=== PATIENT | male | born 1985 | race African-American/Black ===

== ENCOUNTER 2021-12-18 13:42 | Emergency (ER) | payer OTHER, SELFPAY ==
[2021-12-18 13:47] VITALS: BP 131/89; PULSE 74; RESP 16; TEMP 36.7; O2SAT 96
--- NOTE | 2021-12-18 13:49 | DI.RAD.S_ITS ---
PROCEDURE: XR KNEE LT 3V INDICATIONS: pain without known injury TECHNIQUE: 3 views of the knee were acquired. COMPARISON: None. FINDINGS: Bones: No fractures or dislocations. No suspicious bony lesions. Soft tissues: Trace joint effusion. No suspicious soft tissue calcifications. IMPRESSION: No acute osseous abnormality. Dictated by: Korey Mclaughlin M.D. on 12/18/2021 at 15:21 Approved by: Korey Mclaughlin M.D. on 12/18/2021 at 15:22
--- NOTE | 2021-12-18 16:20 | ED_ITS ---
HPI - Extremity Injury (Lower) <James Holt PA-C - Last Filed: 12/18/21 16:25> General Chief Complaint: Extremity Injury, Lower Stated Complaint: LT knee pain Time Seen by Provider: 12/18/21 15:26 Source: patient Mode of arrival: Ambulatory History of Present Illness HPI Narrative: 36-year-old male with no reported past medical history presents to the ED with 2 days of left-sided knee pain. Patient denies any trauma. Patient states that his need for started hurting 2 months ago after a workout. The pain spontaneously resolved, and resumed spontaneously yesterday. Patient denies numbness, tingling, weakness, fever, chills. Patient had moderate relief with ibuprofen. Review of Systems <James Holt PA-C - Last Filed: 12/18/21 16:25> Review of Systems ROS Unobtainable: All systems reviewed & are unremarkable except as noted in HPI and below Constitutional Constitutional: Denies chills, Denies fatigue, Denies fever(s), Denies frequent falls, Denies lethargy and Denies weakness Eyes Eyes: Denies change in vision, Denies eye discharge, Denies irritation and Denies loss of vision ENT Ears, Nose, Mouth, and Throat: Denies change in voice, Denies dizziness, Denies neck pain, Denies sore throat and Denies throat swelling Cardiovascular Cardiovascular: Denies chest pain, Denies irregular heart rhythm, Denies lightheadedness, Denies palpitations, Denies dyspnea, Denies dyspnea on exertion and Denies orthopnea Respiratory Respiratory: Denies cough, Denies dyspnea, Denies dyspnea on exertion and Denies wheezing Gastrointestinal Gastrointestinal: Denies abdominal pain, Denies change in bowel habits, Denies diarrhea, Denies nausea and Denies vomiting Genitourinary Genitourinary: Denies hematuria, Denies flank pain, Denies urinary incontinence and Denies urinary urgency Musculoskeletal Musculoskeletal: Denies back pain, Denies muscle weakness, Denies neck pain, Denies numbness and Denies tingling Comments: Left knee pain Integumentary/Breasts Skin/Breast: Denies pruritus, Denies erythema, Denies rash and Denies wounds Neurologic Neurologic: Denies behavioral changes, Denies confusion, Denies dizziness, Denies frequent falls, Denies loss of vision, Denies numbness, Denies tingling and Denies weakness Psychiatric Psychiatric: Denies anxiety, Denies behavioral changes, Denies confusion, Denies depression, Denies homicidal ideation and Denies suicidal ideation Endocrine Endocrine: Denies fatigue, Denies flushing and Denies palpitations Hematologic/Lymphatic Hematologic/Lymphatic: Denies easy bruising Allergic/Immunologic Allergic/Immunologic: Denies urticaria, Denies throat swelling and Denies wheezing Patient History <James Holt PA-C - Last Filed: 12/18/21 16:25> Social History Smoking Status: Never smoker Smoking Status: Never smoker alcohol intake frequency: a few times a month Exam <James Holt PA-C - Last Filed: 12/18/21 16:25> Initial Vital Signs Initial Vital Signs: Vital Signs Temperature 98.0 F 12/18/21 13:47 Pulse Rate 74 12/18/21 13:47 Respiratory Rate 16 12/18/21 13:47 Blood Pressure 131/89 12/18/21 13:47 Pulse Oximetry 96 12/18/21 13:47 Const General: cooperative, healthy appearing and comfortable HENMT Head: normal to inspection Resp Effort & Inspection: normal respiratory effort Cardio Rate: regular rate Skin General: no rashes or lesions noted Neuro General: patient alert, patient awake and patient oriented x3 Extrem Other: No swelling, erythema, lesions noted to left knee. Knee not tender to palpation. Neurovascularly intact. Full range of motion. Gait normal. Psych Appearance: grossly normal <Jess Reyna DO - Last Filed: 12/18/21 19:46> Initial Vital Signs Initial Vital Signs: Vital Signs Temperature 98.0 F 12/18/21 13:47 Pulse Rate 74 12/18/21 13:47 Respiratory Rate 16 12/18/21 13:47 Blood Pressure 131/89 12/18/21 13:47 Pulse Oximetry 96 12/18/21 13:47 Course <James Holt PA-C - Last Filed: 12/18/21 16:25> Orders Ordered: ED Orders 12/18/21 13:49 XR knee LT 3V Stat Vital Signs Vital signs: Vital Signs - 8 hr 12/18/21 13:47 Temperature 98.0 F Pulse Rate 74 Respiratory Rate 16 Blood Pressure 131/89 Pulse Oximetry 96 <Jess Reyna DO - Last Filed: 12/18/21 19:46> Orders Ordered: ED Orders 12/18/21 13:49 XR knee LT 3V Stat Vital Signs Vital signs: Vital Signs - 8 hr 12/18/21 13:47 Temperature 98.0 F Pulse Rate 74 Respiratory Rate 16 Blood Pressure 131/89 Pulse Oximetry 96 MDM - Extremity Injury (Lower) <James Holt PA-C - Last Filed: 12/18/21 16:25> Imaging Data Extremity x-ray #1: Radiologist's Impression: PROCEDURE:? XR KNEE LT 3V ? INDICATIONS:? pain without known injury ? TECHNIQUE:? 3 views of the knee were acquired.? ? COMPARISON:? None. ? FINDINGS:? ? Bones:? No fractures or dislocations.? No suspicious bony lesions.? ? Soft tissues:? Trace joint effusion.? No suspicious soft tissue calcifications.? ? ? IMPRESSION:? No acute osseous abnormality. ? ? Dictated by: Korey Mclaughlin M.D. on 12/18/2021 at 15:21 ? ? Approved by: Korey Mclaughlin M.D. on 12/18/2021 at 15:22 ? [facility] Narrative Medical decision making narrative: 36-year-old male with no reported past medical history presents to the ED with 2 days of left-sided knee pain. Will order x-rays to rule out fracture/dislocations. X-ray negative for fracture/dislocations. Patient's symptoms likely due to musculoskeletal sprain/strain. Will discharge home with recommendation to rise, ice, compress, elevate. ED return precautions discussed. Patient verbalized understanding. Discharge Plan Departure Patient Disposition: Home Clinical Impression: Acute knee pain Instructions: DI for Knee Pain Activity Restrictions/Additional Instructions: You were evaluated in the ED today for left-sided knee pain. Your x-ray did not show any evidence of fractures or dislocations. Your symptoms are likely due to a knee sprain/strain. You may rest, ice, compress, elevate your foot. Return to the ED if you have symptoms of numbness, tingling, weakness, worsened pain. You may use Tylenol or ibuprofen for symptom control. <Jess Reyna DO - Last Filed: 12/18/21 19:46> Cosign ED Attending Cosignature Attestation: I was immediately available in the department for consultation. Documentation has been reviewed.
== END 2021-12-18 16:03 | disposition home or self-care (01) ==
PROVIDERS: Emergency Provider Student in an Organized Health Care Education/Training Program
DX: M25.562 Pain in left knee (principal)
CPT/HCPCS: 73562; 99281; 99283

== ENCOUNTER 2023-08-28 10:47 | Emergency (ER) | payer SELFPAY ==
[2023-08-28 10:50] VITALS: BP 132/78; PULSE 79; RESP 15; TEMP 36.6; O2SAT 97; BMI 31.4
--- NOTE | 2023-08-28 11:08 | ED.EAR ---
HPI - Ear Problem General Chief complaint: Ear Stated complaint: headache/ear infection Time Seen by Provider: 08/28/23 10:49 Source: patient Mode of arrival: Ambulatory History of Present Illness HPI Narrative: 38-year-old male with no significant past medical history presents for evaluation of left ear pain since yesterday. Patient uses Q-tips daily and is concerned that he may have injured his ear and some fashion. Denies hearing changes, water exposure, other trauma to the ear. Related Data Previous Rx's Medication Instructions Recorded ciprofloxacin 0.2 %-hydrocortisone 3 drp EAR-LEFT Q12H 7 days #10 mL 08/28/23 1 % ear drops,suspension (Cipro HC) ciprofloxacin 0.2 %-hydrocortisone 3 drp EAR-LEFT Q12H 7 days #10 mL 08/28/23 1 % ear drops,suspension (Cipro HC) Allergies Allergy/AdvReac Type Severity Reaction Status Date / Time No Known Drug Allergies Allergy Verified 08/28/23 10:53 Review of Systems Review of Systems Narrative: CONSTITUTIONAL- Denies: fever, chills, fatigue HEENT-reports: Ear pain Denies: sore throat, nosebleed, vision changes RESPIRATORY- Denies: shortness of breath, cough, wheezing CARDIAC- Denies: chest pain, edema, orthopnea GI- Denies: abdominal pain, nausea, vomiting, constipation, diarrhea - Denies: frequency, dysuria, hematuria, flank pain MSK- Denies: extremity pain, extremity swelling, joint pain, joint swelling SKIN- Denies: rash, itching, burn, swelling NEUROLOGICAL- Denies: headache, numbness, weakness, dizziness PSYCHIATRIC- Denies: anxiety, depression, suicidal ideation, homicidal ideation Patient History Social History Smoking Status: Unknown if ever smoked Smoking Status: Unknown if ever smoked alcohol intake frequency: 0-2 drinks per day Substance Use Type: does not use Exam Initial Vital Signs Initial Vital Signs: Vital Signs Temperature 97.8 F 08/28/23 10:50 Pulse Rate 79 08/28/23 10:50 Respiratory Rate 15 08/28/23 10:50 Blood Pressure 132/78 08/28/23 10:50 Pulse Oximetry 97 08/28/23 10:50 Oxygen Delivery Method Room Air 08/28/23 10:50 Const: Awake, alert, no acute distress, nontoxic appearing Eyes: PERRL, EOMI, conjunctiva normal ENT: Right tympanic membrane intact. Left tympanic membrane with abrasion, no perforation. Mild erythema of left tympanic membrane. Negative for auricular tenderness bilaterally, no external auditory canal swelling Cardiac: regular rate, regular rhythm RESP: unlabored, clear bilaterally, no wheezing GI: Atraumatic, soft, nontender, nondistended, no rebound, no guarding MSK: Atraumatic, full range of motion, pulses equal Skin: Warm, Dry, intact, no rashes Neuro: AO x3, CN II-XII grossly intact, moves all extremities Psych: affect normal, mood normal, not suicidal, not homicidal Course Course Course Narrative: Accidental injury to TM without perforation. Patient counseled against further use of Q-tips. We will discharge on antibiotic drops with hydrocortisone. Patient counseled to follow up with his primary care physician. Vital Signs Vital signs: Vital Signs - 8 hr 08/28/23 10:50 Temperature 97.8 F Pulse Rate 79 Respiratory Rate 15 Blood Pressure 132/78 Pulse Oximetry 97 Oxygen Delivery Method Room Air Medical Decision Making Differential Diagnosis Differential Diagnosis: Otitis externa, otitis media, tympanic membrane perforation Discharge Plan Departure Patient Disposition: Home Clinical Impression: Tympanic membrane irritation Instructions: How to Instill Ear Drops Prescriptions: New Cipro HC 0.2-1 % drops,suspension 3 drp EAR-LEFT Q12H 7 Days Qty: 10 0RF Cipro HC 0.2-1 % drops,suspension 3 drp EAR-LEFT Q12H 7 Days Qty: 10 0RF Referrals: Miscellaneous,Doctor, MD [Primary Care Provider] - Stand Alone Forms: Patient Portal/API
== END 2023-08-28 11:14 | disposition home or self-care (01) ==
PROVIDERS: Emergency Provider Emergency Medicine
DX: H73.92 Unspecified disorder of tympanic membrane, left ear (principal)
CPT/HCPCS: 99281

== ENCOUNTER 2023-09-18 00:17 | Emergency (ER) | payer SELFPAY ==
[2023-09-18 00:23] VITALS: BP 128/84; PULSE 77; RESP 18; TEMP 37.1; O2SAT 95; BMI 31.5
--- NOTE | 2023-09-18 00:25 | DI.RAD.S_ITS ---
PROCEDURE: XR FINGER LT MIN 2V INDICATIONS: pain, decreased ROM at DIP TECHNIQUE: AP hand, 2 views of the 4th digit (s) acquired. COMPARISON: None. FINDINGS: Bones: Acute mildly displaced fracture of the base of the 4th digit distal phalanx. Fracture involves the articular surface. Mild dorsal displacement of the fracture fragment. Soft tissues: No suspicious soft tissue calcifications. IMPRESSION: Acute mildly displaced fracture of the base of the 4th digit distal phalanx. Dictated by: Jemal Lundy M.D. on 09/18/2023 at 0:38 Approved by: Jemal Lundy M.D. on 09/18/2023 at 0:42
--- NOTE | 2023-09-18 00:28 | ED.GENADULT ---
HPI - General Adult General Chief complaint: Extremity Injury, Upper Stated complaint: Left ring finger injury Time Seen by Provider: 09/18/23 00:25 History of Present Illness HPI narrative: 38-year-old male noncontributory medical history presents for evaluation of pain in his left 4th finger. He states that he fell on it awkwardly 5 or 6 weeks ago and has had ongoing pain the tip of his finger. Denies numbness or tingling. He is otherwise well and free of complaint Related Data Previous Rx's Medication Instructions Recorded ofloxacin 0.3 % ear drops 10 drp EAR-LEFT Q24H #5 mL 08/29/23 Allergies Allergy/AdvReac Type Severity Reaction Status Date / Time No Known Drug Allergies Allergy Verified 08/28/23 10:53 Review of Systems Review of Systems Narrative: GENERAL: Denies chills, fatigue, malaise, fever, sweats. HEENT: Denies sinus pain, ear pain, sore throat, difficulty swallowing, dizziness. RESPIRATORY: Denies dyspnea, cough, wheezing, hemoptysis, sputum. CARDIOVASCULAR: Denies chest pain, palpitations, orthopnea, edema, GASTROINTESTINAL: Denies nausea, vomiting, abdominal pain, diarrhea, constipation, melena. : Denies dysuria, frequency, incontinence, hematuria, urinary retention. MUSCULOSKELETAL: See HPI SKIN: Denies rash, skin lesions, or other NEUROLOGIC: Denies weakness, headache, numbness, change in speech, confusion, seizures, incoordination. PSYCHIATRIC: No concerning psychosocial issues. 12 point review of systems is negative except for those stated above Patient History Social History Smoking Status: Unknown if ever smoked Smoking Status: Unknown if ever smoked alcohol intake frequency: 0-2 drinks per day Substance Use Type: does not use Exam Narrative Exam Narrative: GEN: AOx3 and in mild distress EYES: Pupils are equal, round, and reactive to light and accommodation. Extraoccular muscles are intact bilaterally. There is no subconjunctival hemorrhage or exudate. CHEST: Lungs are clear to auscultation bilaterally and free of wheezes, rales, or rhonchi. Heart rate is regular rhythm, there are no murmurs, clicks, rubs, or gallops. There is no chest wall tenderness. ABD: Abdomen is soft and nontender. There is no guarding or rebound. Bowel sounds are normal in all 4 quadrants. There is no mass or organomegaly. EXT: Full but painful range of motion of left 4th finger with some tenderness at the PIP, no obvious deformity, closed, isolated and neurovascularly intact SKIN: Warm, pink, and dry. No erythema or rash Initial Vital Signs Initial Vital Signs: Vital Signs Temperature 98.8 F 09/18/23 00:23 Pulse Rate 77 09/18/23 00:23 Respiratory Rate 18 09/18/23 00:23 Blood Pressure 128/84 09/18/23 00:23 Pulse Oximetry 95 09/18/23 00:23 Oxygen Delivery Method Room Air 09/18/23 00:23 Procedures Orthopedic Splinting/Casting Injury #1: Side: left Upper Extremity Injury Location: finger Upper Extremity Immobilizer: aluminum form splint Post splinting neuro exam: intact Post splinting vascular exam: intact Placed by: Nursing Course Orders Ordered: ED Orders 09/18/23 00:25 XR finger LT min 2V Stat Vital Signs Vital signs: Vital Signs - 8 hr 09/18/23 00:23 Temperature 98.8 F Pulse Rate 77 Respiratory Rate 18 Blood Pressure 128/84 Pulse Oximetry 95 Oxygen Delivery Method Room Air Medical Decision Making [facility] Narrative Medical decision making narrative: [38] year old patient presents with left ring finger injury 5 or 6 weeks ago Multiple etiologies for patient's symptoms considered including, but not limited to: [] Fracture versus dislocation versus other Prior Charts reviewed in our EMR Primary Historian: patient Imaging reviewed: 4th finger fracture Patient's history and physical exam is reassuring, the injury is well over month old, closed, isolated and neurovascularly intact. He is splinted and encouraged to follow up with ortho Findings and discharge diagnosis discussed with patient/family followed by verbalization of understanding Return precautions discussed with patient/family whom verbalize understanding of diagnosis and plan Discharge Plan Departure Patient Disposition: Home Clinical Impression: Finger fracture, left Instructions: DI for Finger Fracture Activity Restrictions/Additional Instructions: *You have been diagnosed with [left 4th finger fracture the distal phalanx] *What to do: *Please continue to take your regular medications as directed. [ ] New medication prescriptions sent to your pharmacy: [ ] [ ] New medication written as a paper prescription [x] Tylenol and occasional Motrin for pain *Please follow up with [ Gladys] of [facility] in 2-3 days, call for an appointment. Let them know you were seen in the Emergency Department and that we ask that you be seen in follow up. We will electronically transmit a record of today's note if your PCP is in our system *Return to Emergency Department if you should have any new, worsening or concerning symptoms, such as [worsening pain, significant swelling, cold extremities, numbness, tingling, weakness or other bothersome symptoms Prescriptions: No Action ofloxacin 0.3 % drops 10 drp EAR-LEFT Q24H Qty: 5 0RF Referrals: Miscellaneous,MD Donte [Primary Care Provider] - Mynor Graham MD [Physician] - Stand Alone Forms: Patient Portal/API
== END 2023-09-18 00:56 | disposition home or self-care (01) ==
PROVIDERS: Emergency Provider Emergency Medicine
DX: S62.635A Displaced fracture of distal phalanx of left ring finger, initial encounter for closed fracture (principal); W19.XXXA Unspecified fall, initial encounter
CPT/HCPCS: 29130; 73140; 99283

== ENCOUNTER 2024-02-12 17:34 | Emergency (ER) | payer SELFPAY ==
[2024-02-12 17:45] VITALS: BP 173/97; PULSE 99; RESP 22; TEMP 36.6; O2SAT 97; BMI 29.2
[2024-02-12 18:08] VITALS: PULSE 107; RESP 16; O2SAT 99
[2024-02-12] MEDS: ALBUTEROL/IPRATROPIUM 3 ML AMPUL 9 ML INH ×2 (18:08→19:53)
--- NOTE | 2024-02-12 18:20 | ED_ITS ---
HPI - Asthma General Chief Complaint: Asthma Stated Complaint: respiratory issues Time Seen by Provider: 02/12/24 17:48 Source: patient Mode of arrival: Ambulatory History of Present Illness HPI Narrative: 39-year-old male with history of asthma presents for asthma exacerbation. Patient states that he has been using his albuterol inhaler at home but it does not seem to be helping and is feeling chest tightness similar to previous flare- ups. Patient states that he has been admitted for asthma in the past, but not since he was a child. Denies recent illnesses or upper respiratory complaints. Related Data Previous Rx's Medication Instructions Recorded albuterol sulfate 2 mg/5 mL oral 4 mg (10 mL) PO TID PRN shortness 02/12/24 syrup of breath or wheezing #473 mL albuterol sulfate 90 mcg/actuation 2 puff inhalation Q4-6H PRN 02/12/24 aerosol inhaler shortness of breath or wheezing #8.5 grams prednisone 20 mg tablet 40 mg (2 x 20 mg) PO DAILY #10 tabs 02/12/24 Allergies Allergy/AdvReac Type Severity Reaction Status Date / Time No Known Drug Allergies Allergy Verified 02/12/24 17:47 Review of Systems Review of Systems Narrative: Negative except as noted above Patient History Social History Smoking Status: Unknown if ever smoked Smoking Status: Unknown if ever smoked alcohol intake frequency: 0-2 drinks per day Substance Use Type: does not use Exam Initial Vital Signs Initial Vital Signs: Vital Signs Temperature 98 F 02/12/24 17:45 Pulse Rate 99 H 02/12/24 17:45 Respiratory Rate 22 02/12/24 17:45 Blood Pressure 173/97 H 02/12/24 17:45 Pulse Oximetry 97 02/12/24 17:45 Oxygen Delivery Method Room Air 02/12/24 17:45 Const: Awake, alert, no acute distress, nontoxic appearing Cardiac: regular rate, regular rhythm RESP: Restricted air movement, mild tachypnea, expiratory wheezes upper lung garber GI: Soft, nontender, nondistended, no rebound, no guarding MSK: Atraumatic, full range of motion, pulses equal Skin: Warm, Dry, intact, no rashes Neuro: AO x3, CN II-XII grossly intact, moves all extremities Course Orders Ordered: ED Orders 02/12/24 18:20 Chest [XR chest 1V] Stat 02/12/24 18:27 Respiratory Panel (Film Array) Stat Discontinued Medications Albuterol/Ipratropium (Albuterol/Ipratropium 3 Ml Ampul) 9 ml INH NOW ONE Stop: 02/12/24 18:07 Last Admin: 02/12/24 18:08 Dose: 9 ml Documented By: GARO Albuterol/Ipratropium (Albuterol/Ipratropium 3 Ml Ampul) 9 ml INH NOW ONE Stop: 02/12/24 19:38 Last Admin: 02/12/24 19:53 Dose: 9 ml Documented By: GARO Dexamethasone (Dexamethasone 10 Mg/Ml Vial) 10 mg PO NOW ONE Stop: 02/12/24 18:21 Last Admin: 02/12/24 18:29 Dose: 10 mg Documented By: JAH Vital Signs Vital signs: Vital Signs - 8 hr 02/12/24 17:45 02/12/24 18:08 02/12/24 19:53 Temperature 98 F Pulse Rate 99 H 107 H 106 H Respiratory Rate 22 16 18 Blood Pressure 173/97 H Pulse Oximetry 97 99 98 Oxygen Delivery Method Room Air Room Air Room Air 02/12/24 20:45 02/12/24 20:52 Temperature 99.6 F 100.1 F H Pulse Rate 120 H Respiratory Rate 22 18 Blood Pressure 184/93 H 168/81 H Pulse Oximetry 98 93 Oxygen Delivery Method Room Air Room Air MDM - Asthma Differential Diagnosis Differential diagnosis: Likely Acute exacerbation, Status asthmaticus and Acute asthmatic bronchitis Lab Data Labs: Lab Results 02/12/24 Range/Units 18:27 Chlamy pneumoniae PCR Not detected (Not Detect) Adenovirus (PCR) Not detected (Not Detect) B.parapertussis DNA PCR Not detected (Not Detecte) Coronavirus OC43 (PCR) Not detected (Not Detect) Coronavirus HKU1 (PCR) Not detected (Not Detect) Coronavirus 229E (PCR) Not detected (Not Detect) SARS-CoV-2 (PCR) Not detected (Not Detecte) Coronavirus NL63 (PCR) Not detected (Not Detect) Human Metapneumovir PCR Not detected (Not Detect) Influenza Type A (PCR) Not detected (Not Detect) Influenza Type B (PCR) Not detected (Not Detect) M. pneumoniae (PCR) Not detected (Not Detect) Parainfluenza 1 (PCR) Not detected (Not Detect) Parainfluenza 2 (PCR) Not detected (Not Detect) Parainfluenza 3 (PCR) Not detected (Not Detect) Parainfluenza 4 (PCR) Not detected (Not Detect) RSV (PCR) Not detected (Not Detect) Entero/Rhino (PCR) Detected H (Not Detect) Imaging Data Chest x-ray: Radiologist's Impression: PROCEDURE: XR CHEST 1V INDICATIONS: asthma exacerbation/chest tightness TECHNIQUE: One view of the chest was acquired. COMPARISON: None. FINDINGS: Surgical changes and devices: None. Lungs and pleura: Lungs are clear. No pleural effusions or pneumothorax. Peribronchial cuffing. Mediastinum: Mediastinal contours appear normal. Heart size is normal. Bones and chest wall: No suspicious bony lesions. Overlying soft tissues appear unremarkable. IMPRESSION: Peribronchial cuffing, typically indicating infectious or inflammatory bronchitis. Dictated by: Ethan García M.D. on 02/12/2024 at 18:57 Approved by: Ethan García M.D. on 02/12/2024 at 18:58 [facility] Narrative Medical decision making narrative: Asthma exacerbation in patient with chronic recurrent asthma. Patient saturating well on room air, speaking in complete sentences without difficulty, but does have slight restricted air movement and expiratory wheezes on pulmonary exam. Steroids nebulizers ordered. Chest x-ray shows findings consistent with bronchitis. Patient does have im proved air movement but states he only feels slightly better after receiving DuoNebs. Will observe for a time and then we will give additional nebulizers. Respiratory panel positive for rhino virus. Second round of DuoNebs administered, patient states he feels ?60% better?. He states that at this time he feels improved enough to go home and does not want to stay any longer. He is requesting a refill of his albuterol inhaler as well as a prescription for albuterol nebulizers for his machine at home. In addition plan to discharge with steroid prescription. Prescription sent to patient's p harmacy of choice. ED return precautions discussed at bedside. Critical Care Time Critical Care Time Critical Care Time: Yes Total Critical Care Time: 33 Attestation: Acute asthma exacerbation requiring multiple nebulizers. Discharge Plan Departure Patient Disposition: Home Clinical Impression: Asthma with acute exacerbation Qualifiers: Asthma severity: moderate Instructions: DI for Asthma -- Adult Activity Restrictions/Additional Instructions: Follow up with your primary care physician. Please return to the emergency department if you feel like your breathing is worsening even though you are using your medications. Prescriptions: New albuterol sulfate 2 mg/5 mL syrup 4 mg PO TID PRN (Reason: shortness of breath or wheezing) Qty: 473 0RF albuterol sulfate 90 mcg/actuation HFA aerosol inhaler 2 puff inhalation Q4-6H PRN (Reason: shortness of breath or wheezing) Qty: 8.5 0RF prednisone 20 mg tablet 40 mg PO DAILY Qty: 10 0RF Referrals: Miscellaneous,Doctor, MD [Primary Care Provider] - Stand Alone Forms: Patient Portal/API, Work Release Note
[2024-02-12] MEDS: DEXAMETHASONE 10 MG/ML VIAL PO (18:29)
[2024-02-12 19:33] LABS: Adenovirus Not Detected (Not Detect); B. parapertussis Not Detected (Not Detecte); Bordetella pertussis Not Detected (Not Detect); Chlamydophila pneumoniae Not Detected (Not Detect); Coronavirus 229E Not Detected (Not Detect); Coronavirus HKU1 Not Detected (Not Detect); Coronavirus NL 63 Not Detected (Not Detect); Coronavirus OC43 Not Detected (Not Detect); Human Metapneumovirus Not Detected (Not Detect); Human Rhinovirus/Enterovirus Detected (Not Detect); Influenza A Not Detected (Not Detect); Influenza B Not Detected (Not Detect); Mycoplasma pneumoniae Not Detected (Not Detect); Parainfluenza Virus 1 Not Detected (Not Detect); Parainfluenza Virus 2 Not Detected (Not Detect); Parainfluenza Virus 3 Not Detected (Not Detect); Parainfluenza Virus 4 Not Detected (Not Detect); Respiratory Syncytial Virus Not Detected (Not Detect); SARS- CoV-2 Not Detected (Not Detecte)
[2024-02-12 19:53] VITALS: PULSE 106; RESP 18; O2SAT 98
[2024-02-12 20:45] VITALS: BP 184/93; RESP 22; TEMP 37.6; O2SAT 98
[2024-02-12 20:52] VITALS: BP 168/81; PULSE 120; RESP 18; TEMP 37.8; O2SAT 93
== END 2024-02-12 20:55 | disposition home or self-care (01) ==
PROVIDERS: Emergency Provider Emergency Medicine
DX: J45.901 Unspecified asthma with (acute) exacerbation (principal); B34.8 Other viral infections of unspecified site; Z20.822 Contact with and (suspected) exposure to COVID-19
CPT/HCPCS: 71045; 87633; 94150; 94640; 99283; 99285; J1100

== ENCOUNTER 2025-08-21 05:30 | Emergency (ER) | payer OTHER, SELFPAY ==
[2025-08-21 05:40] VITALS: BP 164/89; PULSE 74; RESP 16; TEMP 36.1; O2SAT 99; BMI 29.9
--- NOTE | 2025-08-21 06:03 | ED_ITS ---
HPI - Wound/Laceration General Chief Complaint: Wound/Laceration Stated Complaint: Rt hand ring finger laceration Time Seen by Provider: 08/21/25 06:02 Source: patient Mode of arrival: Ambulatory History of Present Illness HPI narrative: 40-year-old male punched through a window trying to get back into his home, sustained laceration to the right 4th finger dorsal aspect, can move his finger well. Last tetanus more than 5 years ago. No other injuries. Had local bleeding stopped with direct pressure. Does not take blood thinner medications. Related Data Previous Rx's ?Medication ?Instructions ?Recorded albuterol sulfate 2 mg/5 mL oral 4 mg (10 mL) PO TID P RN shortness 02/12/24 syrup of breath or wheezing #473 m L albuterol sulfate 90 mcg/actuation 2 puff inhalation Q 4-6H PRN 02/12/24 aerosol inhaler shortness of breath or wheez ing #8.5 grams prednisone 20 mg tablet 40 mg (2 x 20 mg) PO DAILY # 10 tabs 02/12/24 Allergies Allergy/AdvReac Type Severity Reaction Status Date / Time No Known Drug Allergies Allergy Verified 08/21/25 05:40 Patient History Social History Smoking Status: Never smoker Smoking Status: Never smoker alcohol intake frequency: 0-2 drinks per day Exam Narrative Exam Narrative: GENERAL: Well-developed patient, in mild distress. HEAD: Atraumatic. Normocephalic. EYES: Pupils equal round and reactive. No injection or drainage. ENT: Nose without bleeding. No facial injuries obvious. Airway patent. NECK: Trachea midline. Non tender CARDIOVASCULAR: Regular rate and rhythm without murmurs, gallops, or rubs. RESPIRATORY: Clear to auscultation. Breath sounds equal bilaterally. No wheezes, rales, or rhonchi. GASTROINTESTINAL: Abdomen soft, non-tender, nondistended. EXTREMITIES: Laceration over the distal phalanx right 4th finger dorsal aspect. Some nonpulsatile oozing blood from the ulnar aspect of the wound. Dorsal midline portion of the wound did not spread very deep or wide, did not visualize any tendinous structure. Full extension of finger including MCP PIP DIP, no di fficulties with full extension finger against some resistance. BACK: Nontender without deformity or crepitance. No flank tenderness. NEURO: AOx3. Motor functions grossly nonfocal. SKIN: No rash or erythema of visible areas Initial Vital Signs Initial Vital Signs: Vital Signs Temperature 97.0 F L 08/21/25 05:40 Pulse Rate 74 08/21/25 05:40 Respiratory Rate 16 08/21/25 05:40 Blood Pressure 164/89 H 08/21/25 05:40 Pulse Oximetry 99 08/21/25 05:40 Oxygen Delivery Method Room Air 08/21/25 05:40 Procedures Laceration Repair Laceration 1: Time of procedure: 07:33 Site: hand (right fourth finger dorsal horizontal hoxkeys tik shaped laceration, no visible tendon midline, full extension including against resistance) Side (If applicable): right Size (cm): 1.75 Description: linear Depth: simple, single layer Local Anesthetic: lidocaine 1% Amount of anesthesia used (mL): 3 Skin layer closed with: nylon Technique: simple, interrupted Subcutaneous layer closed with: vicryl Subcutaneous layer suture size: 4-0 Number of sutures: 6 Technique: simple, interrupted Course Orders Ordered: Discontinued Medications Bacitracin (Bacitracin Oint 0.9 Gm Pckt) 1 applic TOP NOW ONE Stop: 08/21/25 08:12 Last Admin: 08/21/25 08:18 Dose: 1 applic Documented By: RLS Diphtheria/Tetanus/Acell Pertussis (Tet,Diph,Pertuss(Acell),Vac/Pf 0.5 Ml Syringe) 0.5 ml IM .ONCE ONE Stop: 08/21/25 07:33 Last Admin: 08/21/25 08:09 Dose: 0.5 ml Documented By: BS Lidocaine HCl (Lidocaine 1% 20 Ml) 5 ml SUBCUT NOW ONE Stop: 08/21/25 06:47 Last Admin: 08/21/25 07:00 Dose: 5 ml Documented By: AB Vital Signs Vital signs: Vital Signs - 8 hr 08/21/25 05:40 Temperature 97.0 F L Pulse Rate 74 Respiratory Rate 16 Blood Pressure 164/89 H Pulse Oximetry 99 Oxygen Delivery Method Room Air MDM - Wound/Laceration Imaging Data Extremity x-ray #1: Radiologist's Impression: [address] [address] XRay Report Signed Patient: Tenzin Haas MR#: [id number] : 1985 Acct:[id number] Age/Sex: 40 / M Date of Service: 08/21/25 Loc: ED Accession Number: [id number] Procedure: XR finger RT min 2V Ordering Provider: Pierre Raman MD PROCEDURE: XR FINGER RT MIN 2V INDICATIONS: lac from glass TECHNIQUE: AP hand, 2 views of the 4th finger(s) acquired. COMPARISON: None. FINDINGS: Bones: No fractures or dislocations. No suspicious bony lesions. Soft tissues: No suspicious soft tissue calcifications. IMPRESSION: No acute bony abnormality. Note: This final report is concordant with the preliminary after-hours interpretation provided by [facility] Approved by: Mynor Srinivasan M.D. on 08/21/2025 at 10:02 MDM Narrative Medical decision making narrative: Right 4th finger dorsal laceration punching through glass trying to get it back into his home. X-ray without obvious fracture or foreign body shard material. No obvious tendinous injury midline dorsal aspect, could not visualize dorsal extensor tendon structures, he was able to fully extend including against resistance at DIP. X-ray without obvious fracture, no foreign body, see tele radiology report. Primary dorsal finger laceration closure suturing, see procedure note. IM Tdap tetanus updated. Dressed with antibiotic ointment, finger splint, Coban wrap. Follow up with ortho. Discharge Plan Departure Patient Disposition: Home Clinical Impression: Laceration of finger Instructions: DI for Laceration Repair Activity Restrictions/Additional Instructions: Finger laceration 4th finger dorsal aspect, no visible tendon injury, good full extension. Wound closed with sutures. Finger splint. Antibiotic ointment and yolanda finger Coban dressing. Wound check with Orthopedic surgery advised next couple of days. Contact information provided for their clinic. Orthopedics consult placed, they should be contacting you but if you have not heard from them Friday consider calling them to next day follow up. Tetanus shot update given. Prescriptions: No Action albuterol sulfate 2 mg/5 mL syrup 4 mg PO TID PRN (Reason: shortness of breath or wheezing) Qty: 473 0RF albuterol sulfate 90 mcg/actuation HFA aerosol inhaler 2 puff inhalation Q4-6H PRN (Reason: shortness of breath or wheezing) Qty: 8.5 0RF prednisone 20 mg tablet 40 mg PO DAILY Qty: 10 0RF Referrals: Miscellaneous,Doctor, [Primary Care Provider, Medical] Mynor Graham MD [Physician, Orthopedic Surgery] Stand Alone Forms: Patient Portal/API
--- NOTE | 2025-08-21 06:22 | DI.RAD.S_ITS ---
PROCEDURE: XR FINGER RT MIN 2V INDICATIONS: lac from glass TECHNIQUE: AP hand, 2 views of the 4th finger(s) acquired. COMPARISON: None. FINDINGS: Bones: No fractures or dislocations. No suspicious bony lesions. Soft tissues: No suspicious soft tissue calcifications. IMPRESSION: No acute bony abnormality. Note: This final report is concordant with the preliminary after-hours interpretation provided by [email or web address] Approved by: Mynor Srinivasan M.D. on 08/21/2025 at 10:02
[2025-08-21] MEDS: LIDOCAINE 1% 20 ML 5 ML SUBCUT (07:00)
[2025-08-21] MEDS: TET,DIPH,PERTUSS(ACELL),VAC/PF 0.5 ML SYRINGE IM (08:09)
[2025-08-21] MEDS: BACITRACIN OINT 0.9 GM PCKT 1 APPLIC TOP (08:18)
[2025-08-21 08:33] VITALS: BP 134/93; PULSE 72; RESP 15; O2SAT 97
== END 2025-08-21 08:33 | disposition home or self-care (01) ==
PROVIDERS: Emergency Provider Emergency Medicine
DX: S61.214A Laceration without foreign body of right ring finger without damage to nail, initial encounter (principal); W25.XXXA Contact with sharp glass, initial encounter; Z23 Encounter for immunization
CPT/HCPCS: 12001; 29130; 73140; 90471; 99283; 90715